=== PATIENT | female | born 1945 | race Caucasian/White ===

== ENCOUNTER 2021-02-01 06:01 | Emergency (ER) | payer MEDICARE, BC, SELFPAY ==
--- NOTE | 2021-02-01 06:09 | DI.RAD.S_ITS ---
PROCEDURE: XR WRIST LT MIN 3V INDICATIONS: Fell on left wrist 4 days ago; pain and limited mobility TECHNIQUE: 4 views of the wrist were acquired. COMPARISON: None. FINDINGS: Bones: Diffuse osteopenia. Suspected nondisplaced fracture involving the distal left radial metaphysis. This is noted at cortical disruption best seen on the scaphoid view and lateral view. There is overlying soft tissue swelling. Moderate background polyarticular osteoarthritic changes of the left wrist. No suspicious bony lesions. Scaphoid view: Scaphoid appears intact. Scapholunate interval is maintained. Soft tissues: No suspicious soft tissue calcifications. IMPRESSION: Suspected nondisplaced fracture of the distal left radial metaphysis. Diffuse osteopenia. Left wrist osteoarthrosis. No significant discrepancy with the [facility] preliminary report. Dictated by: Oscar Ott M.D. on 02/01/2021 at 7:16 Approved by: Oscar Ott M.D. on 02/01/2021 at 7:20
[2021-02-01 06:12] VITALS: BP 147/83; PULSE 80; RESP 16; TEMP 36.7; O2SAT 98; BMI 27.3
--- NOTE | 2021-02-01 06:41 | ED_ITS ---
HPI - Extremity Injury (Upper) General Chief Complaint: Extremity Injury, Upper Stated Complaint: Left wrist injury 4 dys ago, thinks broken Time Seen by Provider: 02/01/21 06:16 Source: patient Mode of arrival: Ambulatory Limitations: no limitations History of Present Illness HPI narrative: 75-year-old woman with no significant medical history is visiting from [place]. Four days ago she stumbled and fell forward landing on both wrists. Her right wrist has improved nicely but her left wrist continues to bother her. She also hit the edge of the stair with her right anterior chest wall and has a contusion to the top of her right breast that is not painful. She does not complain of any other injuries. Related Data Allergies Allergy/AdvReac Type Severity Reaction Status Date / Time No Known Drug Allergies Allergy Verified 02/01/21 07:11 Review of Systems Review of Systems Narrative: Pertinent positive and negative findings as per HPI Remainder of review of systems is otherwise unremarkable for Constitutional: Fevers, chills, weakness ENT: No sore throat, neck pain, ear pain CV: Chest pain, palpitations, Respiratory: Cough, wheeze, dyspnea GI: Nausea, vomiting, diarrhea, : Dysuria, hematuria, Patient History Social History Smoking Status: Never smoker Smoking Status: Never smoker alcohol intake frequency: 0-2 drinks per day Substance Use Type: does not use Exam Narrative Exam Narrative: General: Alert appropriate in no acute distress Respiratory: Able to speak in full sentences, no obvious respiratory distress Chest: Healing 4 x 4 cm ecchymosis to right anterior chest wall Skin: No obvious rashes, warm and dry Neurologic: Grossly intact no obvious asymmetries or abnormalities Psych: appropriate insight and affect, cooperative Extremity: Minor tenderness to the distal radius on the left. Maintained range of motion the left wrist. Neurovascularly intact. Minimal edema and no ecchymo sis or contusion to the area Initial Vital Signs Initial Vital Signs: Vital Signs Temperature 98.1 F 02/01/21 06:12 Pulse Rate 80 02/01/21 06:12 Respiratory Rate 16 02/01/21 06:12 Blood Pressure 147/83 H 02/01/21 06:12 Pulse Oximetry 98 02/01/21 06:12 Course Orders Ordered: ED Orders 02/01/21 06:09 XR wrist LT min 3V Stat Vital Signs Vital signs: Vital Signs - 8 hr 02/01/21 06:12 Temperature 98.1 F Pulse Rate 80 Respiratory Rate 16 Blood Pressure 147/83 H Pulse Oximetry 98 MDM - Extremity Injury (Upper) Imaging Data X-ray wrist: Radiologist's Impression: Nondisplaced fracture suspected of the distal radial metaphysis Gray Vasquez MD [facility] Narrative Medical decision making narrative: 75-year-old woman who stumbled over a step fell on both wrists 4 days ago nondisplaced distal radius fracture left side. Splint is placed and she is instructed to contact her primary care physician when she returns to [place] in 4 days for definitive treatment of her wrist fracture. Discharge Plan Departure Patient Disposition: Home Clinical Impression: Distal radial fracture Qualifiers: Encounter type: initial encounter Fracture type: closed Fracture morphology: unspecified fracture morphology Laterality: left Qualified Code(s): S52.502A - Unspecified fracture of the lower end of left radius, initial encounter for closed fracture Instructions: DI for Wrist Fracture Activity Restrictions/Additional Instructions: Thank you for coming in today It does look like you have a wrist fracture. The bones are well aligned and the fracture does not extend into the joint space. I have placed you in a splint and you will need to follow-up with your primary care physician when she return to [place] to have another x-ray done and cast placed. Typically for fractures like this a cast remains in place for about 6 weeks to ensure complete healing. Using 400 mg of ibuprofen (2 [id number] pills) and 1 Tylenol every 6 hours can be very helpful in controlling pain. I hope you heal quickly and the drive home goes well
[2021-02-01] MEDS: ACETAMINOPHEN 325 MG TABLET PO (06:58)
[2021-02-01] MEDS: IBUPROFEN 400 MG TABLET PO (06:58)
== END 2021-02-01 07:00 | disposition home or self-care (01) ==
PROVIDERS: Emergency Provider Emergency Medicine
DX: S52.502A Unspecified fracture of the lower end of left radius, initial encounter for closed fracture (principal); R07.89 Other chest pain; W19.XXXA Unspecified fall, initial encounter
CPT/HCPCS: 29125; 73110; 99283; 99284